=== PATIENT | male | born 1960 | race African-American/Black ===

== ENCOUNTER 2019-10-24 17:49 | Inpatient (IN) ==
[2019-10-24] MEDS ORDERED: Ampicillin/Sulbactam 3,000 MG in 0.9 % Sodium Chloride Mini Bag 100 ML IVPB ONE (18:51)
[2019-10-24] MEDS ORDERED: Ketorolac 30 MG/ML VIAL IVP STA (18:53)
[2019-10-24] MEDS ORDERED: Isovue-370 500 ML BOTTLE IVP ONE (19:13)
[2019-10-24] MEDS ORDERED: Ketorolac 15 MG/ML VIAL IVP ONE (19:16)
[2019-10-24 19:35] LABS: Basophils % 0.3 %; Eosinophils # 0.2 K/mcL (0.0-0.6); Eosinophils % 3.1 %; Hematocrit 35.8 % (37.5-50.1); Hemoglobin 11.8 g/dL (12.9-16.9); Immature Granulocytes % 0.4 % (0-4); Lymphocytes # 0.5 K/mcL (0.6-4.6); Lymphocytes % 7.4 %; Mean Corpuscular Hemoglobin 33.6 pg (28.0-33.3); Mean Platelet Volume 8.6 fL (9.4-12.4); Monocytes # 0.3 K/mcL (0.0-1.3); Monocytes % 4.9 %; Neutrophils # 5.7 K/mcL (1.6-8.9); Platelet Count 200 K/mcL (140-400); Red Blood Count 3.51 M/mcL (4.19-5.50); Red Cell Distribution Width 13.3 % (11.5-14.5); Segmented Neutrophils % 83.9 %; White Blood Count 6.8 K/mcL (4.3-11.1)
[2019-10-24 19:48] LABS: Calcium 8.8 mg/dL (8.6-10.3); Potassium 4.1 mEq/L (3.5-5.1)
[2019-10-24] MEDS ORDERED: Ringers Solution, Lactated 1,000 ML IVC ONE (20:13)
[2019-10-24] MEDS ORDERED: *HR* HYDROmorphone (PF) 1 MG/ML SYRINGE IVP STA (20:24)
[2019-10-24] MEDS ORDERED: 0.9 % Sodium Chloride 1,000 ML IVC ONE (20:38)
[2019-10-24 21:52] LABS: Bilirubin,Urine Negative (Negative); Blood,Urine Small (Negative); Clarity,Urine Clear (Clear); Color,Urine Yellow (Yellow); Glucose,Urine (UA) Normal (Normal); Ketones,Urine Negative (Negative); Leukocyte Esterase,Urine Negative (Negative); Nitrite,Urine Negative (Negative); Protein,Urine 100 mg/dL (Neg-Trace); Specific Gravity,Urine 1.013 (1.010-1.025); Urobilinogen,Urine Normal (Normal)
[2019-10-24 21:53] LABS: Bacteria,Urine None Seen per hpf (None-Few); Hyaline Casts,Urine Moderate per lpf (None-Few); Squamous Epithelial Cell,Urine Many per lpf (None-Few); WBC,Urine 30-50 per hpf (0-3)
[2019-10-24] MEDS ORDERED: Naloxone 0.4 MG/ML INJ IVP PRN (22:08)
[2019-10-24] MEDS ORDERED: 0.9 % Sodium Chloride 1,000 ML IVC SCH (22:15)
[2019-10-24] MEDS: *HR* Heparin 5,000 UNIT/ML VIAL SQ SCH (22:39)
[2019-10-24] MEDS ORDERED: *HR* LORazepam 2 MG/ML VIAL IVP PRN ×3 (22:58)
[2019-10-24] MEDS ORDERED: *HR* FentaNYL (PF) 100 MCG/2 ML VIAL IVP ONE (23:44)
[2019-10-25] MEDS ORDERED: *HR* HYDROmorphone 2 MG TABLET PO PRN (00:21)
[2019-10-25] MEDS: Ampicillin/Sulbactam 3,000 MG in 0.9 % Sodium Chloride 100 ML IVPB SCH ×2 (05:01→17:55)
[2019-10-25 05:34] LABS: Hematocrit 32.4 % (37.5-50.1); Hemoglobin 10.9 g/dL (12.9-16.9); Mean Corpuscular HGB Conc 33.6 g/dL (31.6-35.5); Mean Corpuscular Hemoglobin 33.9 pg (28.0-33.3); Mean Corpuscular Volume 100.6 fL (83.0-100.0); Mean Platelet Volume 9.1 fL (9.4-12.4); Platelet Count 192 K/mcL (140-400); Red Blood Count 3.22 M/mcL (4.19-5.50); Red Cell Distribution Width 13.2 % (11.5-14.5)
[2019-10-25 05:49] LABS: Albumin 3.5 g/dL (3.5-5.7); Bilirubin,Direct 0.6 mg/dL (0.0-0.2); Bilirubin,Indirect 0.7 mg/dL (0.0-1.0); Bilirubin,Total 1.3 mg/dL (0.3-1.0); Calcium 8.3 mg/dL (8.6-10.3); Globulin 3.4 g/dL (2.4-3.5); Potassium 4.1 mEq/L (3.5-5.1); Total Protein 6.9 g/dL (6.4-8.9)
[2019-10-25 05:53] LABS: Iron < 10 mcg/dL (65-175); Transferrin 161 mg/dL (203-362)
[2019-10-25 05:54] LABS: White Blood Count 10.2 K/mcL (4.3-11.1)
[2019-10-25 06:12] LABS: Ferritin 1186 ng/mL (20-250)
[2019-10-25] MEDS: *HR* Heparin 5,000 UNIT/ML VIAL SQ SCH (10:36)
[2019-10-25] MEDS ORDERED: Vancomycin 1,250 MG/262.5 ML IV.SOLN IVPB ONE (15:19)
[2019-10-25 19:31] VITALS: BP 140/81
== END 2019-10-25 19:55 | disposition short-term general hospital (02) | DRG 115 ==
LOC: EMEROOARM 17:49 → 3BNU 17:49
PROVIDERS: ADMIT Student in an Organized Health Care Education/Training Program; ATTEND Internal Medicine